=== PATIENT | female | born 1935 | race Caucasian/White ===

== ENCOUNTER → 2020-12-09 | Outpatient (CLI) | payer OTHER ==
[~2020-12-09] MED LIST: ASPIRIN CHEWABL81 MG PO; ASPIRIN EC81 MG PO; ATORVASTATIN CA20 MG PO; BETAPACE 80MG T80 MG PO; DECONEX DMX 171 EAC1 PO; ELIQUIS5 MG PO; EUTHYROX137 MCG PO; EUTHYROX150 MCG PO; FERROUS SULFAT325 M2 PO; FLAGYL500 MG PO; HYDROCHLOROTH12.5 MG PO; HYDROCHLOROTHIA25 MG PO; HYDROCODON-ACE1 EAC4 PO; IMDUR ER TAB 6060 MG PO; ISOSORBIDE MONO60 MG PO; LEVAQUIN500 MG PO; LEVOFLOXACIN500 MG PO; LISINOPRIL20 MG PO; LOPRESSOR100 MG PO; MECLIZINE HCL25 MG PO; MYLANTA MAXIMU355 ML PO; NIFEDIPINE ER90 M1 PO; NITROSTAT 0.40.4 MG SL; NORVASC10 MG PO; OMEPRAZOLE20 M1 PO; PLAVIX 75 MG TA75 MG PO; PROBIOTIC250 MG PO; PROCARDIA XL30 MG PO; PROTONIX 20 MG20 MG PO; SERTRALINE HCL50 MG PO; SOTALOL80 MG PO; SYNTHROID112 MCG PO; TYLENOL W/CODEIN1 E1 PO; VITAMIN C500 M4 PO; VITAMIN D250 MCG PO; VITAMIN E400 UNI4 PO; ZITHROMAX250 MG PO; ZOLOFT50 MG PO
[2020-12-09 13:16] LABS: HEMOGLOBIN 13.4 gm/dl (12.3-15.3); RED BLOOD COUNT 4.19 M/UL (4.00-5.10); WHITE BLOOD COUNT 8.4 K/UL (4.5-11.0)
== END ==
LOC: LAB 12:44
PROVIDERS: Internal Medicine Cardiovascular Disease
DX: I49.5 Sick sinus syndrome (principal); J70.3 Chronic drug-induced interstitial lung disorders; Z45.010 Encounter for checking and testing of cardiac pacemaker pulse generator [battery]
CPT/HCPCS: 36415; 71046; 80048; 85025

== ENCOUNTER → 2020-12-11 | Outpatient (CLI) | payer OTHER ==
[~2020-12-11] VITALS: Ht 167.6 cm; Wt 68.0 kg
== END ==
LOC: CATH 10:24
DX: Z45.018 Encounter for adjustment and management of other part of cardiac pacemaker (principal); I49.5 Sick sinus syndrome; I12.9 Hypertensive chronic kidney disease with stage 1 through stage 4 chronic kidney disease, or unspecified chronic kidney disease; N18.9 Chronic kidney disease, unspecified; I48.0 Paroxysmal atrial fibrillation; I25.10 Atherosclerotic heart disease of native coronary artery without angina pectoris; I65.21 Occlusion and stenosis of right carotid artery; I35.1 Nonrheumatic aortic (valve) insufficiency; J44.9 Chronic obstructive pulmonary disease, unspecified; K21.9 Gastro-esophageal reflux disease without esophagitis; M10.9 Gout, unspecified; E78.5 Hyperlipidemia, unspecified; E03.9 Hypothyroidism, unspecified; I27.20 Pulmonary hypertension, unspecified; G47.33 Obstructive sleep apnea (adult) (pediatric); Z87.891 Personal history of nicotine dependence; Z82.49 Family history of ischemic heart disease and other diseases of the circulatory system; Z79.01 Long term (current) use of anticoagulants; Z79.899 Other long term (current) drug therapy; Z79.82 Long term (current) use of aspirin
CPT/HCPCS: 33213; 99152; 99153; C1785; J2250; J3010; J3370; J7040; J7050

== ENCOUNTER 2021-01-21 14:36 | Emergency (ER) | payer OTHER ==
[~2021-01-21 14:36] MED LIST changes: -MECLIZINE HCL25 MG PO; -MYLANTA MAXIMU355 ML PO; -OMEPRAZOLE20 M1 PO
[2021-01-21 16:03] LABS: RED BLOOD COUNT 4.33 M/UL (4.00-5.10)
[2021-01-21] MEDS ORDERED: MECLIZINE HCL25 MG PO (18:52)
== END 2021-01-21 19:40 | disposition home or self-care (01) ==
LOC: ER1 14:36
PROVIDERS: Emergency Medicine
DX: R42 Dizziness and giddiness (principal); J44.9 Chronic obstructive pulmonary disease, unspecified; I10 Essential (primary) hypertension; Z88.5 Allergy status to narcotic agent
CPT/HCPCS: 70496; 70498; 71045; 80053; 81001; 82550; 82553; 83690; 83735; 83874; 83880; 84100; 84439; 84443; 84484; 85025; 85610; 85730; 93005; 99284; J7030; Q9967

== ENCOUNTER 2021-01-25 10:33 | Emergency (ER) | payer OTHER ==
[~2021-01-25 10:33] MED LIST changes: +MECLIZINE HCL25 MG PO
[2021-01-25 13:04] LABS: HEMOGLOBIN 12.9 gm/dl (12.3-15.3); RED BLOOD COUNT 4.08 M/UL (4.00-5.10); WHITE BLOOD COUNT 7.7 K/UL (4.5-11.0)
[2021-01-25 13:35] LABS: BUN/CREATININE RATIO 24 (0-10)
[2021-01-25] MEDS ORDERED: MYLANTA MAXIMU355 ML PO (15:26)
[2021-01-25] MEDS ORDERED: OMEPRAZOLE20 M1 PO (15:26)
== END 2021-01-25 16:20 | disposition home or self-care (01) ==
LOC: ER1 10:33
PROVIDERS: Family Medicine
DX: R07.2 Precordial pain (principal); I10 Essential (primary) hypertension; E78.5 Hyperlipidemia, unspecified; I48.91 Unspecified atrial fibrillation; E03.9 Hypothyroidism, unspecified
CPT/HCPCS: 71045; 80053; 82550; 82553; 83690; 83874; 84484; 85025; 93005; 96374; 99285; C9113

== ENCOUNTER → 2021-07-08 | Outpatient (CLI) | payer OTHER ==
[~2021-07-08] MED LIST changes: +MYLANTA MAXIMU355 ML PO; +OMEPRAZOLE20 M1 PO
== END ==
LOC: KOH-I 13:44
DX: M25.561 Pain in right knee (principal); M17.11 Unilateral primary osteoarthritis, right knee; M25.461 Effusion, right knee
CPT/HCPCS: 73560

== ENCOUNTER → 2021-07-19 | Outpatient (CLI) | payer OTHER | LOC: KOH-I 11:10 → EXRD 11:15 → KOH-I 11:30 | DX: I65.23 Occlusion and stenosis of bilateral carotid arteries (principal) | CPT/HCPCS: 93880 ==

== ENCOUNTER → 2022-01-31 | Outpatient (CLI) | payer OTHER | LOC: KOH-I 14:48 | DX: I65.23 Occlusion and stenosis of bilateral carotid arteries (principal) | CPT/HCPCS: 93880 ==

== ENCOUNTER → 2022-05-23 | Outpatient (CLI) | payer OTHER | LOC: KOH-I 14:43 | DX: M54.50 Low back pain, unspecified (principal); M51.36 Other intervertebral disc degeneration, lumbar region | CPT/HCPCS: 72100; 73502 ==

== ENCOUNTER → 2022-07-05 | Outpatient (CLI) | payer OTHER | LOC: EXRD 10:45 | DX: I65.23 Occlusion and stenosis of bilateral carotid arteries (principal); R55 Syncope and collapse | CPT/HCPCS: 93880 ==